=== PATIENT | male | born 1995 | race African-American/Black ===

== ENCOUNTER 2017-12-25 09:45 | Emergency (ER) | payer SELFPAY ==
[2017-12-25] MEDS ORDERED: Ondansetron ODT 4 MG TAB ONE (10:05)
== END 2017-12-25 10:12 | disposition home or self-care (01) ==
LOC: MADERS 09:45
DX: K52.9 Noninfective gastroenteritis and colitis, unspecified (principal)
CPT/HCPCS: 99283; Q0162

== ENCOUNTER 2019-08-19 14:49 | Emergency (ER) | payer SELFPAY | END 2019-08-19 15:57 | disposition home or self-care (01) | LOC: MADERS 14:49 | DX: K21.9 Gastro-esophageal reflux disease without esophagitis (principal); R53.81 Other malaise | CPT/HCPCS: 99283 ==

== ENCOUNTER 2020-01-16 07:19 | Emergency (ER) | payer SELFPAY ==
[2020-01-16] MEDS ORDERED: Ondansetron ODT 4 MG TAB ONE (08:21)
== END 2020-01-16 09:15 | disposition home or self-care (01) ==
LOC: MADERS 07:19
DX: K52.9 Noninfective gastroenteritis and colitis, unspecified (principal)
CPT/HCPCS: 99283; Q0162

== ENCOUNTER 2020-03-23 10:50 | Emergency (ER) | payer SELFPAY ==
--- NOTE | 2020-03-23 11:52 | RAD ---
2 VIEW CHEST: Date: 03/23/2020 HISTORY: Chest pain. FINDINGS: Lungs are clear. No infiltrate or vascular congestion. Heart and mediastinum appear normal. Osseous s tructures unremarkable. Apical pleural reflection seen in both apices. No evidence of pneumothorax. IMPRESSION: No acute findings. POS: AH
[2020-03-23] MEDS ORDERED: Nitroglycerin 2% Ointment 1 INCH/1 GM Packet ONE (12:19)
[2020-03-23] MEDS ORDERED: Lidocaine Viscous Sol 2% 15 ml UD Cup ONE (12:19)
[2020-03-23] MEDS ORDERED: Mag-Al Plus 1200 MG/1200 MG/120 MG/30 ML UDCUP ONE (12:19)
[2020-03-23] MEDS ORDERED: Aspirin Chewable 81 MG TAB ONE (12:19)
[2020-03-23 12:41] LABS: ALT (SGPT) 22 U/L (8-55); AST (SGOT) 32 U/L (5-34); Albumin 4.3 g/dL (3.5-5.0); Alkaline Phosphatase 80 U/L (40-110); Anion Gap 15 mmol/L (10-20); BUN (Urea Nitrogen) 14 mg/dL (8.9-20.6); Bilirubin, Total 0.9 mg/dL (0.2-1.2); CK (CPK) 1050 U/L (30-200); Calc. Creatinine Clearance 0 mL/min (70-130); Calcium 9.3 mg/dL (7.8-10.44); Carbon Dioxide 26 mmol/L (22-29); Chloride 104 mmol/L (98-107); Estimated GFR-MDRD Greater than 90; Globulin 3.1 g/dL (2.4-3.5); Glucose 81 mg/dL (70-105); Potassium 3.6 mmol/L (3.5-5.1); Protein, Total 7.4 g/dL (6.0-8.3); Sodium 141 mmol/L (136-145)
[2020-03-23 12:42] LABS: Band 3 % (5-11); Hemoglobin 15.1 g/dL (14.0-18.0); Lymphocytes 44 % (21-51); MDiff Complete? YES; Mean Corpuscular HGB CONC 31.6 g/dL (32.0-36.0); Mean Corpuscular Hemoglobin 26.1 pg (27.0-31.0); Mean Corpuscular Volume 82.9 fL (78.0-98.0); Mean Platelet Volume 6.4 fL (7.4-10.4); Monocytes 16 % (0-10); Neutrophil 37 % (42-75); Platelet Count 389 thou/uL (130-400); Platelet Morphology Comment Appears Adequate; RBC Distribution Width 12.2 % (11.5-14.5); RBC Morphology Normal; Red Blood Cell (RBC) Count 5.77 mill/uL (4.70-6.10)
[2020-03-23] MEDS ORDERED: Sodium Chloride 0.9% 1,000 ML ONE ×2 (13:05→15:32)
== END 2020-03-23 14:35 | disposition short-term general hospital (02) ==
LOC: MADERS 10:50
DX: M62.82 Rhabdomyolysis (principal); R94.31 Abnormal electrocardiogram [ECG] [EKG]; R07.89 Other chest pain
CPT/HCPCS: 36415; 71046; 80053; 82550; 84484; 85025; 93005; J7050

== ENCOUNTER 2021-05-31 11:58 | Emergency (ER) | payer OTHER, SELFPAY ==
[2021-06-01 13:06] LABS: SARS-CoV-2 PCR by NAA DETECTED (NotDetected)
== END 2021-05-31 14:18 | disposition home or self-care (01) ==
LOC: MADERS 11:58
DX: U07.1 COVID-19 (principal)
CPT/HCPCS: 87804; 99283; U0003; U0005

== ENCOUNTER 2021-06-28 05:29 | Emergency (ER) | payer SELFPAY ==
[2021-06-28] MEDS ORDERED: Ondansetron ODT 4 MG TAB ONE (05:43)
== END 2021-06-28 06:48 | disposition home or self-care (01) ==
LOC: MADERS 05:29
DX: R11.2 Nausea with vomiting, unspecified (principal)
CPT/HCPCS: 99283; Q0162

== ENCOUNTER 2021-08-11 09:45 | Emergency (ER) | payer OTHER, SELFPAY | END 2021-08-11 10:24 | disposition home or self-care (01) | LOC: MADERS 09:45 | DX: R11.2 Nausea with vomiting, unspecified (principal) | CPT/HCPCS: 99283 ==

== ENCOUNTER 2021-09-30 10:14 | Emergency (ER) | payer SELFPAY | END 2021-09-30 11:15 | disposition home or self-care (01) | LOC: MADERS 10:14 | DX: B34.9 Viral infection, unspecified (principal) | CPT/HCPCS: 87804; 99283 ==

== ENCOUNTER 2021-11-02 07:51 | Emergency (ER) | payer SELFPAY ==
[2021-11-02] MEDS ORDERED: Ondansetron ODT 4 MG TAB ONE (08:13)
[2021-11-02] MEDS ORDERED: Dicyclomine 20 MG/2 ML VIAL ONE (08:13)
== END 2021-11-02 08:29 | disposition home or self-care (01) ==
LOC: MADERS 07:51
DX: A08.4 Viral intestinal infection, unspecified (principal)
CPT/HCPCS: 96372; 99283; J0500; Q0162

== ENCOUNTER 2022-12-10 12:18 | Emergency (ER) | payer SELFPAY ==
[2022-12-10] MEDS ORDERED: Ibuprofen 800 MG TAB ONE (13:38)
== END 2022-12-10 13:41 | disposition home or self-care (01) ==
LOC: MADERS 12:18
DX: M79.10 Myalgia, unspecified site (principal)
CPT/HCPCS: 99283